=== PATIENT | male | born 1970 | race Caucasian/White ===

== ENCOUNTER 2016-03-12 11:49 | Day surgery (SDC) | payer OTHER ==
[~2016-03-12] VITALS: Ht 182.9 cm; Wt 122.0 kg
[~2016-03-12 11:49] MED LIST: LORTAB 7.5/5001 TAB PO; NO HOME MEDICATIONS
[2016-03-12 12:39] VITALS: BP 172/99; PULSE 91; TEMP 97
[2016-03-12] MEDS ORDERED: TORADOL 10MG TA10 MG PO (12:50)
[2016-03-12] MEDS ORDERED: TYLENOL 500MG500 MG PO (12:51)
[2016-03-12 15:45] VITALS: BP 139/107; PULSE 85; TEMP 98.6
[2016-03-12 16:00] VITALS: BP 148/97; PULSE 81
[2016-03-12 16:03] VITALS: TEMP 97.4
[2016-03-12 16:15] VITALS: BP 156/97; PULSE 83
[2016-03-12] MEDS ORDERED: NORCO 325 MG-51 TAB PO (16:19)
[2016-03-12] MEDS ORDERED: PYRIDIUM 100MG100 MG PO (16:19)
[2016-03-12 16:30] VITALS: BP 139/98; PULSE 90
== END 2016-03-12 17:05 | disposition home or self-care (01) ==
LOC: SDCO 11:49
DX: N20.1 Calculus of ureter (principal); Z87.442 Personal history of urinary calculi; F17.210 Nicotine dependence, cigarettes, uncomplicated
CPT/HCPCS: C1769; C2617; J0360; J0690; J1100; J2270; J2405; J2704; J3010; J7120

== ENCOUNTER 2016-09-26 08:54 | Emergency (ER) | payer OTHER ==
[~2016-09-26] VITALS: Ht 182.9 cm; Wt 118.2 kg
[~2016-09-26 08:54] MED LIST changes: +NORCO 325 MG-51 TAB PO; +PYRIDIUM 100MG100 MG PO; +TORADOL 10MG TA10 MG PO; +TYLENOL 500MG500 MG PO
[2016-09-26 09:03] VITALS: TEMP 97.7
[2016-09-26 09:39] LABS: BASO # 0.1 (0.0-0.2); BASO % 1.2 % (0.0-2.0); EOS # 0.4 (0.0-0.7); EOS % 3.7 % (0-4.0); GRAN # 7.2 (1.4-6.5); HEMATOCRIT 47.8 % (42.0-52.0); HEMOGLOBIN 16.7 g/dl (13.5-18.0); LYMPH # 3.1 (1.2-3.4); LYMPH % 26.6 % (20.0-51.0); MEAN CELL VOLUME 84 fl (80.0-100.0); MEAN CORPUSCULAR HEMOGLOBIN 29 pg (27.0-31.0); MEAN CORPUSCULAR HGB CONC 35 g/dl (33.0-37.0); MEAN PLATELET VOLUME 10.5 fl (7.4-10.4); MONO # 0.8 (0.1-0.6); MONO % 7.1 % (1.7-9.3); PLATELET COUNT 393 K/mm3 (130-400); RED BLOOD COUNT 5.69 M/mm3 (4.20-5.60); REDCELL DISTRIBUTION WIDTH-CV 13.5 % (11.5-14.5); WHITE BLOOD COUNT 11.7 K/mm3 (4.8-10.8)
[2016-09-26 09:49] LABS: ADJUSTED CALCIUM 9.4 mg/dL (8.4-10.2); ALBUMIN 4.4 gm/dL (3.5-5.0); BILIRUBIN,TOTAL 0.8 mg/dL (0.0-1.0); CALCIUM 9.7 mg/dL (8.4-10.2); CREATININE, serum 1.35 mg/dL (0.66-1.25); POTASSIUM 4.6 mmol/L (3.4-5.0); TOTAL PROTEIN 8.4 gm/dL (6.4-8.2)
[2016-09-26 11:13] VITALS: BP 145/89; PULSE 90
== END 2016-09-26 11:14 | disposition home or self-care (01) ==
LOC: COL.ER 08:54
PROVIDERS: Emergency Medicine
DX: N20.1 Calculus of ureter (principal); Z87.442 Personal history of urinary calculi; I10 Essential (primary) hypertension; F17.200 Nicotine dependence, unspecified, uncomplicated
CPT/HCPCS: J1885; J7030

== ENCOUNTER 2017-02-14 14:00 | Day surgery (SDC) | payer OTHER ==
[2017-02-14] VITALS (8 sets, daily range): BP systolic 138–157; BP diastolic 77–101; PULSE 84–102; TEMP 97.9–98.3
[~2017-02-14] VITALS: Ht 182.9 cm; Wt 124.3 kg
[2017-02-14] MEDS ORDERED: PERCOCET 325 MG1 TA2 PO (16:01)
[2017-02-14] MEDS ORDERED: OMNICEF 300MG300 MG PO (16:02)
== END 2017-02-14 21:09 | disposition home or self-care (01) ==
LOC: SDCO 14:00 → SURG 18:20 → SDCO 21:09
DX: N20.2 Calculus of kidney with calculus of ureter (principal); I10 Essential (primary) hypertension; R06.83 Snoring; Z80.1 Family history of malignant neoplasm of trachea, bronchus and lung; E66.9 Obesity, unspecified; Z68.35 Body mass index [BMI] 35.0-35.9, adult; F17.210 Nicotine dependence, cigarettes, uncomplicated
CPT/HCPCS: OP; C1769; C2617; J0690; J1100; J1170; J1885; J2405; J2704; J3010; J7120; Q9967

== ENCOUNTER → 2017-05-20 | Outpatient (CLI) | payer OTHER ==
[~2017-05-20] MED LIST changes: +OMNICEF 300MG300 MG PO; +PERCOCET 325 MG1 TA2 PO
== END ==
LOC: COL.RAD 11:08
DX: E21.2 Other hyperparathyroidism (principal)
CPT/HCPCS: A9500

== ENCOUNTER → 2017-07-09 | Outpatient (CLI) | payer OTHER | LOC: COL.RAD 11:10 | DX: N20.2 Calculus of kidney with calculus of ureter (principal); N28.1 Cyst of kidney, acquired ==